=== PATIENT | female | born 1955 | race Caucasian/White ===

== ENCOUNTER → 2023-10-10 17:21 | Outpatient (REF) | payer MEDICARE, SELFPAY | LOC: WDC 17:21 | PROVIDERS: ATTENDING PHYSICIAN Internal Medicine | DX: Z12.31 Encounter for screening mammogram for malignant neoplasm of breast (principal); Z12.39 Encounter for other screening for malignant neoplasm of breast | CPT/HCPCS: 77063; 77067 ==

== ENCOUNTER → 2023-10-16 09:00 | Outpatient (REF) | payer MEDICARE, SELFPAY | LOC: RAD 09:00 | PROVIDERS: ATTENDING PHYSICIAN Internal Medicine | DX: M81.0 Age-related osteoporosis without current pathological fracture (principal) | CPT/HCPCS: 77080 ==

== ENCOUNTER → 2023-10-18 10:21 | Outpatient (REF) | payer MEDICARE, SELFPAY | LOC: RAD 10:21 | PROVIDERS: ATTENDING PHYSICIAN Internal Medicine | DX: Z87.891 Personal history of nicotine dependence (principal) | CPT/HCPCS: 71271 ==

== ENCOUNTER → 2024-10-17 13:43 | Outpatient (REF) | payer MEDICARE, SELFPAY | LOC: HWWDC 13:43 | PROVIDERS: ATTENDING PHYSICIAN Internal Medicine | DX: Z12.31 Encounter for screening mammogram for malignant neoplasm of breast (principal) | CPT/HCPCS: 77063; 77067 ==

== ENCOUNTER → 2024-10-22 13:23 | Outpatient (REF) | payer MEDICARE, SELFPAY | LOC: HWRAD 13:23 | PROVIDERS: ATTENDING PHYSICIAN Internal Medicine | DX: Z87.891 Personal history of nicotine dependence (principal) | CPT/HCPCS: 71271 ==